=== PATIENT | male | born 1960 | race Caucasian/White ===

== ENCOUNTER 2021-07-19 02:25 | Outpatient (CLI) | payer MEDICAID, SELFPAY ==
[2021-07-19 11:40] LABS: ALT 24 U/L (16-63); AST 14 U/L (15-37); Albumin 3.6 g/dL (3.4-5.0); Alkaline Phosphatase 72 U/L (46-116); Anion Gap 6.1 mmol/L (3-11); BUN 19 mg/dL (7-18); Bilirubin, Total 0.5 mg/dL (0.2-1.0); CO2 28.9 mmol/L (21.0-32.0); Calcium 9.1 mg/dL (8.5-10.1); Calculated LDL 184 mg/dL (<100); Chloride 105 mmol/L (98-107); Cholesterol 260 mg/dL (<200); Glucose 93 mg/dL (74-106); HDL Cholesterol 61 mg/dL (40-60); Potassium 4.4 mmol/L (3.5-5.1); Sodium 140 mmol/L (136-145); Total Protein 6.4 g/dL (6.4-8.2); Triglyceride 76 mg/dL (<150)
[2021-07-20 10:47] LABS: Hepatitis C Ab w Rflx HCV PCR Negative (Negative)
[2021-07-20 10:50] LABS: HIV-1/2 Ag & Ab Screen Negative (Negative)
== END 2021-07-19 02:26 | disposition home or self-care (01) ==
LOC: LBO 02:25
PROVIDERS: PCP Family Medicine; Visit Provider Family Medicine
DX: Z13.220 Encounter for screening for lipoid disorders (principal); Z11.3 Encounter for screening for infections with a predominantly sexual mode of transmission; Z11.4 Encounter for screening for human immunodeficiency virus [HIV]
CPT/HCPCS: 36415; 80053; 80061; 86803; 87389

== ENCOUNTER → 2022-03-13 01:33 | Outpatient (CLI) | payer MEDICAID, SELFPAY ==
--- NOTE | 2022-03-13 08:00 | DI.CTLCSR_ITS ---
Exam(s) CT CHEST LUNG CANCER SCREEN EXAM: CT CHEST LUNG CANCER SCREEN CLINICAL HISTORY: Screening for lung cancer,CURRENT SMOKER, F17.210 TECHNIQUE: Imaging Protocol: Axial computed tomography images with coronal and sagittal reformatted images were created and reviewed. Low dose screening protocol. COMPARISON: No exams were available for comparison FINDINGS: Tracheobronchial tree: No bronchiectasis or mucus plugging.. Mediastinum and Stephani: No dominant adenopathy or fluid collection. Pulmonary parenchyma: No consolidation or dominant measurable mass. Minimal emphysematous changes. Lung Nodules: 6 x 4 x 5 millimeter nodule lateral left lower lobe. A few other to 3 millimeter nodul es are seen in the right upper lobe. Pleura: No effusion. No pneumothorax. Heart: The heart is not dilated. Minimal coronary artery calcifications are seen. Aorta: Ascending aorta 3.9 cm. Upper abdomen: Unremarkable. Bones: Unremarkable for age. Soft Tissues: Unremarkable. IMPRESSION: 5 millimeter average diameter left lower lobe nodule. Category Lung RADS Cat 2 - Benign Appearance / Behavior: Nodules with a very low likelihood of becomi ng a clinically active cancer due to size or lack of growth Lung-RADS 1.0 CATEGORIES: Category 0 - Prior chest CT exam(s) being located for comparison. Category 1 - Annual screening in 12 months. No nodules or definitely benign nodules. Category 2 - Annual screening in 12 months. Benign appearance. Nodules with low likelihood of becomin g active cancer. Category 3 - 6-month follow-up. Probably benign. Short-term follow-up suggested. Nodules with low lik elihood of becoming active cancer. Category 4A - 3-month follow-up and CT/PET if >8 mm in size. Suspicious finding. Findings which requi re additional testing. Category 4B - Findings which require additional testing and tissue sampling. Category 4X - Category 3 or 4 nodules with additional features or imaging findings that increases the suspicion of malignancy. Modifier S- Potentially clinically significant findings (non lung cancer) RADIATION DOSE DELIVERED: 82.55mGy.cm Total DLP 1.84mGy!Error CTDIvol DATA REPOSITORY: All CT scans at this facility are submitted to the National Radiology Data Registry (NRDR) Dose Index Registry (DIR) with the [employer] (ACR). RADIATION OPTIMIZATION: All CT scans at this facility use at least one of these dose optimization te chniques: automated exposure control; mA and/or kV adjustment per patient size (includes targeted exa ms where dose is matched to clinical indication); or iterative reconstruction.
== END ==
PROVIDERS: PCP Family Medicine; Visit Provider Family Medicine
DX: F17.210 Nicotine dependence, cigarettes, uncomplicated (principal); Z12.2 Encounter for screening for malignant neoplasm of respiratory organs; R91.1 Solitary pulmonary nodule
CPT/HCPCS: 71271

== ENCOUNTER → 2022-04-24 01:09 | Outpatient (CLI) | payer MEDICAID, SELFPAY ==
--- NOTE | 2022-04-24 07:30 | DI.RAD_ITS ---
Exam(s) XR LUMBAR SPINE COMPLETE EXAM: XR LUMBAR SPINE COMPLETE CLINICAL HISTORY: New onset low back pain,piriformis syndrome,g57.00. TECHNIQUE: 2D digital imaging was performed of the lumbar spine. Five images were obtained. AP, la teral, right oblique, left oblique and L5-S1 spot views were obtained. COMPARISON: No exams were available for comparison FINDINGS: BONES: No fracture or destructive lesion. There are endplate osteophytes at multiple levels. Degener ative changes of the facets are seen in the lower lumbar spine. DISKS: There is disc space narrowing throughout the lumbar spine at each level. ALIGNMENT: Lumbar spinal alignment is within normal limits. 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 SOFT TISSUE: Normal. IMPRESSION: Moderate degenerative changes of the lumbar spine. DATA REPOSITORY: RADIATION DOSE DELIVERED:
--- NOTE | 2022-04-24 07:30 | DI.RAD_ITS ---
Exam(s) XR HIP RT COMPLETE AP PELVIS EXAM: XR HIP RT COMPLETE AP PELVIS CLINICAL HISTORY: Refractory hip pain,piriformis syndrome,g57.00. TECHNIQUE: 2D digital imaging was performed of the right hip. Two images were obtained. AP pelvis a nd lateral right hip views were obtained. COMPARISON: No exams were available for comparison FINDINGS: BONES: No acute fracture is present. No bony destructive lesion is seen. There are 3 sclerotic foci s een-2 in the pelvis and 1 in the right femur. While these may be benign lesion such as bone islands metastatic disease should be considered. JOINTS: No dislocation present. There are mild degenerative changes seen in the right hip. Chondroca lcinosis is present. SOFT TISSUE: Vascular calcification is present. IMPRESSION: 1. Mild degenerative changes of the right hip. 2. Sclerotic foci seen in the pelvis and right femur. Metastatic deposits cannot be excluded. Bon e scan should be considered for further evaluation. Unexpected findings DATA REPOSITORY: RADIATION DOSE DELIVERED:
== END ==
PROVIDERS: PCP Family Medicine; Visit Provider Family Medicine
DX: M54.59 Other low back pain (principal); M43.06 Spondylolysis, lumbar region; M47.816 Spondylosis without myelopathy or radiculopathy, lumbar region; G57.01 Lesion of sciatic nerve, right lower limb; M25.551 Pain in right hip; M16.11 Unilateral primary osteoarthritis, right hip; R93.7 Abnormal findings on diagnostic imaging of other parts of musculoskeletal system
CPT/HCPCS: 72110; 73502

== ENCOUNTER → 2022-05-01 00:58 | Outpatient (CLI) | payer MEDICAID, SELFPAY ==
--- NOTE | 2022-05-01 07:09 | DI.NM_ITS ---
Exam(s) NM BONE SCAN WHOLE BODY GRP EXAM: NM BONE SCAN WHOLE BODY GRP CLINICAL HISTORY: New hip pain, possible mets seen on xray,BONY SCLEROSIS, Q78.2. TECHNIQUE: Injected Dose: 25 mCi Tc-99m MDP Delayed Images: 2-3 hours. COMPARISON: CR XR HIP RT COMPLETE AP PELVIS from 04/24/2022 CR XR LUMBAR SPINE COMPLETE from 04/24/2022 FINDINGS: There is no abnormal radiopharmaceutical uptake in the intertrochanteric region of the right hip, imp lying that the sclerotic bone lesion seen at this level on recent plain films is most probably a angélica gn bone island. Also no abnormal focal uptake seen in the acetabular region of the opposite-left hip, implying that t he sclerotic density at this level is most probably also benign bone island. There is no abnormal uptake seen in either side of the pelvis, hips and indeed no abnormal uptake see n in the long bones of the lower extremities. There is a focus of mild increased uptake seen in the left side of the lower lumbar spine which is mo st probably related to facet arthropathy as seen on plain films. Also there appears to be a pars def ect at L5 on the recent plain films which may account for this finding. Basically, there is no abnormal uptake seen in the skeleton which would suggest osseous metastatic or primary neoplastic disease. Some uptake in both sides of the mandible is noted which is probably re lated to dental disease. IMPRESSION: 1. Findings as above. No evidence of metastatic disease. DATA REPOSITORY:
== END ==
PROVIDERS: PCP Family Medicine; Visit Provider Family Medicine
DX: M25.551 Pain in right hip (principal); M47.816 Spondylosis without myelopathy or radiculopathy, lumbar region; M85.88 Other specified disorders of bone density and structure, other site
CPT/HCPCS: 78306

== ENCOUNTER 2022-06-14 01:39 | Outpatient (CLI) | payer MEDICAID, SELFPAY ==
[2022-06-14 11:42] LABS: Calculated LDL 176 mg/dL (<100); Cholesterol 278 mg/dL (<200); HDL Cholesterol 85 mg/dL (40-60); Triglyceride 88 mg/dL (<150)
== END 2022-06-14 01:40 | disposition home or self-care (01) ==
PROVIDERS: PCP Family Medicine; Visit Provider Family Medicine
DX: E78.5 Hyperlipidemia, unspecified (principal)
CPT/HCPCS: 80061

== ENCOUNTER 2022-07-02 01:08 | Outpatient (CLI) | payer MEDICAID, SELFPAY ==
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
--- NOTE | 2022-07-02 07:45 | DI.MRI_ITS ---
Exam(s) MR LUMBAR SPINE WO EXAM: MR LUMBAR SPINE WO CLINICAL HISTORY: Refractory piriformis syndrome,? DISC DISEASE,G57.00. TECHNIQUE: Multiplanar multisequence MRI of the Lumbar spine was performed. COMPARISON: CR XR LUMBAR SPINE COMPLETE from 04/24/2022 FINDINGS: Bones: The last intervertebral disc space is designated the L5/S1 level for the numbering purpose of this examination. The vertebral body heights are well maintained. Alignment is satisfactory. Mild d egenerative endplate signal changes are present. Cord: The conus tip ends at the T12-L1 level. It is of normal size and signal intensity. T12-L1: No disc herniations or bulges are present. No central spinal canal or neural foraminal stenos is. L1-2: There is a mild diffuse disc bulge. No central spinal canal or neural foraminal stenosis. L2-3: There is a diffuse disc bulge present. Degenerative changes of the facets are seen. There is mild narrowing of the central spinal canal. No significant neural foraminal stenosis is present. L3-4: There is a diffuse disc bulge. There is a right paracentral disc herniation which extrudes pos terior to the L4 vertebral body. There is right lateral recess stenosis and compression of the right L4 nerve root. There is moderate central spinal canal stenosis. Mild bilateral neural foraminal st enosis is present. L4-5: There is a diffuse disc bulge. There are hypertrophic changes of the facets and ligamentum fla vum, left greater than right. Moderately severe central spinal canal stenosis is present.There is mo derate right and severe left neural foraminal stenosis. L5-S1: There is a diffuse disc bulge. There are degenerative changes of the facets. No significant central spinal canal stenosis is seen. There is moderate bilateral neural foraminal stenosis. Soft tissues: The visualized SI joints and sacrum are well maintained. The paraspinal soft tissues ar e unremarkable. IMPRESSION: 1. Degenerative changes seen at L4-5 resulting in moderately severe central spinal canal stenosis, mo derate right neural foraminal stenosis and severe left neural foraminal stenosis. 2. Diffuse disc bulge and right paracentral extruded disc at the L3-L4 level causing right lateral re cess stenosis and compression of the right L4 nerve root. 3. Multilevel degenerative changes in the lumbar spine resulting in central spinal canal neural karly inal stenosis as described above. DATA REPOSITORY:
== END 2022-07-02 01:28 ==
LOC: DI 01:09
PROVIDERS: PCP Family Medicine; Visit Provider Family Medicine
DX: M47.816 Spondylosis without myelopathy or radiculopathy, lumbar region (principal); M48.061 Spinal stenosis, lumbar region without neurogenic claudication; M51.26 Other intervertebral disc displacement, lumbar region; Z87.821 Personal history of retained foreign body fully removed
CPT/HCPCS: 70030; 72148

== ENCOUNTER 2022-10-31 10:40 | Outpatient (CLI) | payer MEDICAID, SELFPAY ==
[2022-10-31 10:47] VITALS: BP 134/82; PULSE 78; RESP 20; TEMP 36.6; O2SAT 98
[2022-10-31 11:33] VITALS: PULSE 76; O2SAT 97
[2022-10-31] MEDS: Lidocaine 2% Pres-Free 5 ML VIAL IJ (11:38)
--- NOTE | 2022-11-01 06:31 | PDOC.PAIN_ITS ---
Date of service: 10/31/22 Time of Service: 12:00 Pain Managment Procedure Note Procedure Note Procedure Note: PROCEDURE NOTE ULTRASOUND-GUIDED RIGHT PIRIFORMIS MUSCLE TRIGGER POINT INJECTION Date of Service: October 31, 2022 Patient:? Jensen Mcgee? Provider:?Bulmaro Ozuna DO, MPH Jensen Mcgee? has been referred to the Pain Management Center for an ultrasound guided procedure Pre-operative diagnosis: Muscle Pain Post-operative diagnosis: Same Pre-Procedure Pain: VAS= 3/10. COMMENTS: The patient was previously seen in the [facility] Patient was interviewed and the medical record reviewed. There were no medical, pharmacologic, radiographic, or other structural contraindications to preforming an ultrasound guided injection. Risks and expected side effects as well as potential benefits of the procedure were reviewed. The patient consent form was signed and witnessed. Standard time-out procedure was performed. The use of direct ultrasound visualization of the needle (rather than a non- guided injection) was required to increase patient safety by excluding inadvertent intramuscular, intratendinous, or intraneural needle placement and minimizing bleeding by avoiding osteochondral or vascular injury from the needle. Additionally, the increased accuracy of placement may increase clinical effectiveness and will allow higher diagnostic specificity when evaluating effectiveness of this injection. Procedure Description: The patient was placed in the Prone position and pulse oximeter applied for monitoring during the procedure and recorded in the medical record. Pre-injection ultrasound scanning of the area of interest was performed using linear transducer, identifying relevant anatomy, landmarks, and neurovascular structures allowing for optimal needle path. It was noted that the Sciatic nerve was very prominent in the plane between the Piriformis muscle and the Gluetus Samuel muscle. The site was then prepared in the usual sterile fashion, using thorough Chlorhexadine preparation of the skin and sterile draping. The same ultrasound transducer was then passed into the sterile field using sterile probe cover and sterile ultrasound gel. The injection target was again visualized. Skin and subcutaneous tissues were anesthetized with 2 mL of 1% Lidocaine using a 1.5 inch 25G needle. A Zondle ultrasound needle was placed under live ultrasound guidance, using an in-plane approach, to the target area. After visualization of the needle tip at the target area 3 cc of 2% Lidocaine was injected between the Piriforomis and Glutues Samuel after negative aspiration for blood. This was visualized to be outside of the Sciatic nerve. Ultrasound images were captured and stored for documentation purposes. Bailey vital signs were stable throughout the procedure and were as recorded in the doc flowsheet by the nursing staff. If given, dosages of intravenous drugs for anxiolysis and analgesia were documented in MAR. Follow up plans and appointments were discussed with the patient.? Post procedure instruction was given as documented in nursing documentation and having met discharge criteria, the patient was discharged from the Pain Management Center. COMMENTS: I did notifiy him of the prominence of his Sciatic nerve and that significant care should be taken with any injections into his buttocks. He will start gluteal stretching exercises in 48 hours as instructed (he has the handouts). No apparent complications. Post-procedure pain: VAS=1/10. The patient will restart home exercises after 48 hours. Patient to follow up with our office by phone as needed. I personally completed the entire procedure. BULMARO OZUNA DO, MPH ABPM[employer]R - Subspecialty board certification in Pain Medicine [facility] Management
== END 2022-10-31 10:41 | disposition home or self-care (01) ==
LOC: PC 10:40
PROVIDERS: PCP Family Medicine; Visit Provider Preventive Medicine Occupational Medicine
DX: G57.01 Lesion of sciatic nerve, right lower limb (principal)
CPT/HCPCS: 20611

== ENCOUNTER 2024-01-30 00:10 | Outpatient (CLI) | payer MEDICARE, MEDICAID, SELFPAY ==
--- OUTSIDE RECORDS SUMMARY | 2024-01-30 00:16 | XMS_ITS | Referral Summary ---
Author Organization [facility] Address [address] [place] [address] Care Team Providers Care Application Systems Engineer Name Role Phone Unavailable Primary Care Provider Unavailabl e Social History Tobacco Use Types Packs/Day Years Used Date Smoking Tobacco: Never Assessed Sex and Gender Information Value Date Recorded Sex Assigned at Not on file Gender Identity Not on file Sexual Orientation Not on file Plan of Treatment Not on file Procedures Procedure Name Priority Date/Time Associated Diagnosis Comments HEPATITIS C AB W REFLEX TO HCV RNA BY PCR Routine 07/19/2021 10:24 EST from Last 3 Months or Most Recently Relevant to Health Maintenance Results * HEPATITIS C AB W REFLEX TO HCV RNA BY PCR (07/19/2021 10:24 EST) Hep C Antibody Negative Negative 07/20/2021 10:42 EST [facility] Blood VENOUS BLOOD / Unknown 07/19/2021 10:24 EST 07/19/2021 17:50 EST Provider Outr Resulting Lab CHEMISTRY & BLOOD GAS ORDERABLES [facility] [address] [place] [address] from Last 3 Months or Most Recently Relevant to Health Maintenance
--- OUTSIDE RECORDS SUMMARY | 2024-01-30 00:16 | XMS_ITS | Clinical Summary ---
Author Organization [facility] Address [address] [place] [address] Care Team Providers Care Cutting Machine Offbearer Name Role Phone Unavailable Primary Care Provider Unavailabl e Social History Tobacco Use Types Packs/Day Years Used Date Smoking Tobacco: Never Assessed Sex and Gender Information Value Date Recorded Sex Assigned at Not on file Gender Identity Not on file Sexual Orientation Not on file Plan of Treatment Health Maintenance Due Date Last Done Comments RSV Immunization ( o r 60+ Years) (1 - 1-dose 60+ series) 2018 COVID-19 Vaccine (2022- season) 2023 Fall Risk Screening 2023 Hepatitis C Screen Completed 07/19/2021 Procedures Procedure Name Priority Date/Time Associated Diagnosis Comments HEPATITIS C AB W REFLEX TO HCV RNA BY PCR Routine 07/19/2021 10:24 EST from Last 3 Months or Most Recently Relevant to Health Maintenance Results * HEPATITIS C AB W REFLEX TO HCV RNA BY PCR (07/19/2021 10:24 EST) Hep C Antibody Negative Negative 07/20/2021 10:42 EST [facility] Blood VENOUS BLOOD / Unknown 07/19/2021 10:24 EST 07/19/2021 17:50 EST Provider Outr Resulting Lab CHEMISTRY & BLOOD GAS ORDERABLES [facility] [address] [place] [address] from Last 3 Months or Most Recently Relevant to Health Maintenance
--- OUTSIDE RECORDS SUMMARY | 2024-01-30 00:16 | XMS_ITS | Encounter Summary ---
Author Organization [facility] Address [address] [place] [id number] Care Team Providers Care Structurer Name Role Phone Unavailable Primary Care Provider Unavailabl e Encounter Details Date Type Department Care Team (Late st Contact Info) Description 07/19/2021 Lab Requisition [facility] Pathology & Laboratory Medicine - [address] [address] Outr Resulting Lab, Provider Social History Tobacco Use Types Packs/Day Years Used Date Smoking Tobacco: Never Assessed Sex and Gender Information Value Date Recorded Sex Assigned at Not on file Gender Identity Not on file Sexual Orientation Not on file documented as of this encounter Plan of Treatment Not on file documented as of this encounter Procedures Procedure Name Priority Date/Time Associated Diagnosis Comments HIV 1/2 ANTIGEN AND ANTIBODY, 4TH GENERATION Routine 07/19/2021 10:24 EST documented in this encounter Results * HIV 1/2 ANTIGEN AND ANTIBODY, 4TH GENERATION (07/19/2021 10:24 EST) HIV 1 and 2 Antibody/p24 Antigen, 4th Generation Negative Negative 07/20/2021 10:45 EST [facility] Comment:If acute HIV-1 infec tion is suspected in a high risk patient, submit plasma specimen for HIV-1 RNA quantitation test. Blood VENOUS BLOOD / Unknown 07/19/2021 10:24 EST 07/19/2021 17:50 EST Narrative [facility] - 07/20/2021 10:45 EST Fourth Generation assay performed on the Siemens Centaur XPT. Provider Outr Resulting Lab IMMUNOLOGY A ND SEROLOGY ORDERABLES [facility] [address] [place] [address] documented in this encounter Visit Diagnoses Not on filedocumented in this encounter
--- OUTSIDE RECORDS SUMMARY | 2024-01-30 00:16 | XMS_ITS | Encounter Summary ---
Author Organization [facility] Address [address] [place] [address] Care Team Providers Care Court Magistrate Name Role Phone Unavailable Primary Care Provider Unavailabl e Encounter Details Date Type Department Care Team (Late st Contact Info) Description 07/19/2021 Lab Requisition [facility] Pathology & Laboratory Medicine - [address] [address] Outr Resulting Lab, Provider Social History Tobacco [...] RNA BY PCR Routine 07/19/2021 10:24 EST documented in this encounter Results * HEPATITIS C AB W REFLEX TO HCV RNA BY PCR (07/19/2021 10:24 EST) Hep C Antibody Negative Negative 07/20/2021 10:42 EST [facility] Blood VENOUS BLOOD / Unknown 07/19/2021 10:24 EST 07/19/2021 17:50 EST Provider Outr Resulting Lab CHEMISTRY & BLOOD GAS ORDERABLES [facility] [address] [place] [address] documented in this encounter Visit Diagnoses Not on filedocumented in this encounter
--- NOTE | 2024-01-30 11:00 | DI.CTLCSR_ITS ---
Exam(s) CT CHEST LUNG CANCER SCREEN EXAM: CT CHEST LUNG CANCER SCREEN CLINICAL HISTORY: Screening for lung cancer,CURRENT SMOKER, F17.210. TECHNIQUE: Imaging Protocol: Low Dose Technique CONTRAST MATERIAL: None COMPARISON: CT CT CHEST LUNG CANCER SCREEN from 03/13/2022 FINDINGS: CHEST: LUNGS: The previously described 5 millimeter left lower lobe nodule is unchanged from 202. There ar e no new significant left lung nodules. There is some peripheral atelectasis in the lateral aspect of the right middle lobe, also previously present.. There are no new significant pulmonary nodules.. There are no new confluent infiltrates. No pleural effusions. MEDIASTINUM: There is no obvious hilar nor mediastinal adenopathy. CARDIAC: Heart size is normal. There is no pericardial effusion.The diameter of the ascending thorac ic aorta is prominent, measuring 4.1 cm. Diameter of the aortic arch and descending thoracic aorta a re upper normal., OTHER: OSSEOUS: No significant osseous lesions.. No fractures IMPRESSION: 1. Stable solitary 5 millimeter left lower lobe nodule. Stable benign-appearing right breast finding s. No new nodules evident. No pleural effusions. 2. Ascending thoracic aorta is enlarged measuring 4.1 cm. Heart size is normal. There is no pericar dial effusion. 3. Lung RADS Cat 2S - Benign Appearance / Behavior: Nodules with a very low likelihood of becoming a clinically active caner due to size or lack of growth. Other: Clinically Significant or Potentially C linically Significant Findings (non lung cancer) Lung-RADS 1.0 CATEGORIES: Category 0 - Prior chest CT exam(s) being located for comparison. Category 1 - Annual screening in 12 months. No nodules or definitely benign nodules. Category 2 - Annual screening in 12 months. Benign appearance. Nodules with low likelihood of becomin g active cancer. Category 3 - 6-month follow-up. Probably benign. Short-term follow-up suggested. Nodules with low lik elihood of becoming active cancer. Category 4A - 3-month follow-up and CT/PET if >8 mm in size. Suspicious finding. Findings which requi re additional testing. Category 4B - Findings which require additional testing and tissue sampling. Category 4X - Category 3 or 4 nodules with additional features or imaging findings that increases the suspicion of malignancy. Modifier S- Potentially clinically significant findings (non lung cancer) RADIATION DOSE DELIVERED: 27.6mGy.cm Total DLP DATA REPOSITORY: All CT scans at this facility are submitted to the National Radiology Data Registry (NRDR) Dose Index Registry (DIR) with the [employer] (ACR). RADIATION OPTIMIZATION: All CT scans at this facility use at least one of these dose optimization te chniques: automated exposure control; mA and/or kV adjustment per patient size (includes targeted exa ms where dose is matched to clinical indication); or iterative reconstruction.
== END 2024-01-30 00:30 ==
LOC: DI 00:15
PROVIDERS: PCP Family Medicine; Visit Provider Family Medicine
DX: F17.210 Nicotine dependence, cigarettes, uncomplicated (principal); Z12.2 Encounter for screening for malignant neoplasm of respiratory organs; R91.1 Solitary pulmonary nodule
CPT/HCPCS: 71271

== ENCOUNTER 2024-03-29 08:11 | Outpatient (CLI) | payer MEDICARE, SELFPAY ==
--- NOTE | 2024-03-29 08:00 | RT.EKG_ITS ---
APPROVED REPORT Exam: Resting ECG Reason for Exam: LIRA Patient Location: O HR:67 bpm ECG Measurements Heart Rate 67 AXIS VA 136 P 72 QRSd 96 QRS 58 QT 390 T 66 QTc 412 Conclusion Sinus rhythm...normal P axis, V-rate 50- 99 Probable left atrial enlargement...P >50mS, <-0.10mV V1 RSR' in V1 or V2, probably normal variant...small R' only Otherwise normal ECG
== END 2024-03-29 08:12 | disposition home or self-care (01) ==
LOC: DI.CARD 08:12
PROVIDERS: PCP Family Medicine; Visit Provider Internal Medicine Cardiovascular Disease
DX: R06.09 Other forms of dyspnea (principal)
CPT/HCPCS: 93010

== ENCOUNTER → 2024-03-29 11:06 | Outpatient (BNVA) | payer MEDICARE, SELFPAY | PROVIDERS: PCP Family Medicine; Referring Provider Family Medicine; Visit Provider Internal Medicine Cardiovascular Disease | DX: I77.89 Other specified disorders of arteries and arterioles (principal) | CPT/HCPCS: 93005; 99203 ==

== ENCOUNTER 2024-05-11 02:13 | Outpatient (CLI) | payer MEDICARE, SELFPAY ==
[2024-05-11 11:00] LABS: Calculated LDL 139 mg/dL (<100); Cholesterol 229 mg/dL (<200); HDL Cholesterol 67 mg/dL (40-60); Triglyceride 117 mg/dL (<150)
== END 2024-05-11 02:14 | disposition home or self-care (01) ==
LOC: LBO 02:13
PROVIDERS: PCP Family Medicine; Referring Provider Family Medicine; Visit Provider Family Medicine
DX: E78.5 Hyperlipidemia, unspecified (principal)
CPT/HCPCS: 36415; 80061